=== PATIENT | male | born 1985 | race Caucasian/White ===

== ENCOUNTER 2017-01-12 08:35 | Emergency (ER) | payer SELFPAY ==
[~2017-01-12] VITALS: Ht 188 cm; Wt 99.8 kg
[2017-01-12] MEDS ORDERED: IBUPROFEN 600 MG TABLET PO ONE (08:57)
[2017-01-12] MEDS: IBUPROFEN 400 MG TABLET PO ONE (09:03)
[2017-01-12 10:10] VITALS: BP 126/84
== END 2017-01-12 10:28 | disposition home or self-care (01) ==
LOC: ER 08:37
DX: M79.604 Pain in right leg (principal); S80.01XA Contusion of right knee, initial encounter; V49.3XXA Car occupant (driver) (passenger) injured in unspecified nontraffic accident, initial encounter; Y93.89 Activity, other specified; Y92.89 Other specified places as the place of occurrence of the external cause; Y99.8 Other external cause status
CPT/HCPCS: 73590-TC; A4606; Z7610